=== PATIENT | female | born 1980 | race Caucasian/White ===

== ENCOUNTER 2016-12-25 02:35 | Emergency (ER) | payer BC, OTHER ==
[~2016-12-25] VITALS: Ht 162.6 cm; Wt 52.7 kg
[2016-12-25 02:40] VITALS: Ht 162.6 cm; Wt 52.7 kg
[2016-12-25] MEDS ORDERED: SOD CHLORIDE 0.9% 1,000 ML IV STA (05:08)
[2016-12-25] MEDS ORDERED: ONDANSETRON 4 MG INJ IV STA (05:08)
[2016-12-25] MEDS ORDERED: morphine 4 MG/ML VIAL IV STA (05:08)
[2016-12-25 05:47] LABS: ADD SCAN DIFF NO
[2016-12-25] MEDS ORDERED: HYDR-842 PO (05:50)
[2016-12-25] MEDS ORDERED: VITA1CAP PO (05:52)
[2016-12-25 06:14] LABS: ALBUMIN 4.5 g/dl (3.3-4.9); ALBUMIN/GLOBULIN RATIO 1.4; BILIRUBIN,INDIRECT 0.3 mg/dl (0-1.1); BILIRUBIN,TOTAL 0.3 mg/dl (0.2-1.3); CALCIUM 9.4 mg/dl (8.4-10.2); CREATININE 0.69 mg/dl (0.44-1.00); POTASSIUM 4.3 mmol/L (3.5-5.1); TOTAL PROTEIN 7.7 g/dl (6.1-8.1)
[2016-12-25 06:19] LABS: BASOPHIL # 0.1 10^3/ul (0.0-0.1); BASOPHILS % 0.9 % (0.0-2.0); EOSINOPHILS # 0.4 10^3/ul (0.0-0.5); EOSINOPHILS % 3.4 % (0.0-7.0); HEMATOCRIT 43.4 % (37.0-47.0); HEMOGLOBIN 13.4 g/dl (12.0-16.0); LYMPHOCYTES # 3.5 10^3/ul (0.8-2.9); LYMPHOCYTES % 33.5 % (15.0-51.0); MEAN CORPUSCULAR HEMOGLOBIN 26.2 pg (29.0-33.0); MEAN CORPUSCULAR HGB CONC 30.9 g/dl (32.0-37.0); MEAN CORPUSCULAR VOLUME 84.9 fl (82.0-101.0); MEAN PLATELET VOLUME 10.4 fl (7.4-10.4); MONOCYTE # 0.7 10^3/ul (0.3-0.9); MONOCYTES % 6.4 % (0.0-11.0); NEUTROPHIL # 5.8 10^3/ul (1.6-7.5); NEUTROPHILS % 55.4 % (39.0-77.0); PLATELET COUNT 309 10^3/UL (140-415); RED BLOOD COUNT 5.11 10^6/ul (4.20-5.40); WHITE BLOOD COUNT 10.4 10^3/ul (4.8-10.8)
[2016-12-25 06:29] LABS: ADD UMIC NO; URINE BILIRUBIN (Dip) NEGATIVE (NEGATIVE); URINE BLOOD (Dip) NEGATIVE (NEGATIVE); URINE COLOR LT. YELLOW (YELLOW); URINE GLUCOSE (Dip) NEGATIVE (NEGATIVE); URINE KETONES (Dip) NEGATIVE (NEGATIVE); URINE LEUKOCYTE ESTERASE (Dip) NEGATIVE (NEGATIVE); URINE NITRITE (Dip) NEGATIVE (NEGATIVE); URINE TOTAL PROTEIN (Dip) NEGATIVE (NEGATIVE); URINE UROBILINOGEN (Dip) 0.2 E.U./dL (0.1-1.0)
[2016-12-25] MEDS ORDERED: LIDOCAINE/MYLANTA 40 ML BTL PO ONE (06:30)
[2016-12-25] MEDS ORDERED: PANTOPRAZOLE (EC) 40 MG TAB PO ONE (06:30)
--- NOTE | 2016-12-25 06:41 | RADRPT ---
PROCEDURE: XR Chest. CLINICAL INDICATION: Abdominal pain TECHNIQUE: A single AP view of the chest was obtained. COMPARISON: None. FINDINGS: No focal airspace opacification, pleural effusion or pneumothorax is seen. The cardiomediastinal si lhouette is within normal limits for size. The osseous structures are unremarkable. IMPRESSION: No radiographic evidence of acute cardiopulmonary disease. RPTAT: HH .Tracey Anne MD, MD Date Time Electronically viewed and signed by .Tracey Anne MD, on 12/25/2016 06:40 .G/
[2016-12-25] MEDS ORDERED: ONDA4TAB14 PO (08:03)
[2016-12-25] MEDS ORDERED: PANT40TA3 PO (08:03)
[2016-12-25 08:15] VITALS: BP 131/85; PULSE 79; RESP 18; TEMP 97.8
--- NOTE | 2016-12-25 09:37 | ERD ---
ER Documentation Chief Complaint Date/Time DATE: 12/25/16 TIME: 09:34 Chief Complaint ABD PAIN RADIATING TO UPPER BACK X1DAY. +SOB. HPI Patient is a 36-year-old female with no medical problems who presents with abdominal pain. She says the abdominal pain started yesterday after eating. She says "I feel fullness". She has had midepigastric pain which radiates up her esophagus. She has a funny taste in her mouth. She denies fevers. She had vomiting yesterday. She has no diarrhea. She tried Atarax last night. Upon review of old medical records the patient one previous visit to the ER in 2012. ROS All systems reviewed and are negative except as per history of present illness. Medications Home Meds Active Scripts Pantoprazole* (Protonix*) 40 Mg Tablet.dr, 40 MG PO DAILY, #20 TAB Prov:SORAIDA CASTRO MD 12/25/16 Ondansetron (Ondansetron Odt) 4 Mg Tab.rapdis, 4 MG PO Q6H Y for NAUSEA AND/OR VOMITING, #30 TAB Prov:SORAIDA CASTRO MD 12/25/16 Reported Medications Vitamin B Complex (Vitamin B Complex) 1 Each Capsule, 1 EACH PO, CAP 12/25/16 Hydroxyzine Hcl* (Atarax*) 25 Mg Tab, 0 PO TID, TAB 12/25/16 Allergies Allergies: Coded Allergies: No Known Allergy (Unverified , 12/25/16) PMhx/Soc Medical and Surgical Hx: pt denies Medical Hx History of Surgery: Yes (c section) Hx Alcohol Use: No Hx Substance Use: No Hx Tobacco Use: No Smoking Status: Never smoker FmHx Family History: No diabetes Physical Exam Vitals Vital Signs Date Time Temp Pulse Resp B/P Pulse Ox O2 Delivery O2 Flow Rate FiO2 12/25/16 08:15 97.8 79 18 131/85 100 Room Air 12/25/16 02:40 97.4 72 20 116/76 99 Physical Exam Const: No acute distress Head: Atraumatic Eyes: Normal Conjunctiva ENT: Normal External Ears, Nose and Mouth. Neck: Full range of motion..~ No meningismus. Resp: Clear to auscultation bilaterally Cardio: Regular rate and rhythm, no murmurs Abd: Soft, non tender, non distended. Normal bowel sounds Skin: No petechiae or rashes Back: No midline or flank tenderness Ext: No cyanosis, or edema Neur: Awake and alert Psych: Normal Mood and Affect Result Diagram: 12/25/16 0529 12/25/16 0529 Results 24 hrs Laboratory Tests Test 12/25/16 05:29 White Blood Count 10.410^3/ul Red Blood Count 5.1110^6/ul Hemoglobin 13.4g/dl Hematocrit 43.4% Mean Corpuscular Volume 84.9fl Mean Corpuscular Hemoglobin 26.2pg Mean Corpuscular Hemoglobin Concent 30.9g/dl Red Cell Distribution Width 19.0% Platelet Count 99226^3/UL Mean Platelet Volume 10.4fl Neutrophils % 55.4% Lymphocytes % 33.5% Monocytes % 6.4% Eosinophils % 3.4% Basophils % 0.9% Nucleated Red Blood Cells % 0.0/100WBC Neutrophils # 5.810^3/ul Lymphocytes # 3.510^3/ul Monocytes # 0.710^3/ul Eosinophils # 0.410^3/ul Basophils # 0.110^3/ul Nucleated Red Blood Cells # 0.010^3/ul Urine Color LT. YELLOW Urine Clarity CLEAR Urine pH 6.0 Urine Specific Dalton 1.015 Urine Ketones NEGATIVE Urine Nitrite NEGATIVE Urine Bilirubin NEGATIVE Urine Urobilinogen 0.2 E.U./dL Urine Leukocyte Esterase NEGATIVE Urine Hemoglobin NEGATIVE Urine Glucose NEGATIVE% Urine Total Protein NEGATIVE Sodium Level 140mmol/L Potassium Level 4.3mmol/L Chloride Level 105mmol/L Carbon Dioxide Level 27mmol/L Anion Gap 12 Blood Urea Nitrogen 9mg/dl Creatinine 0.69mg/dl Glucose Level 82mg/dl Calcium Level 9.4mg/dl Total Bilirubin 0.3mg/dl Direct Bilirubin 0.00mg/dl Indirect Bilirubin 0.3mg/dl Aspartate Amino Transf (AST/SGOT) 24IU/L Alanine Aminotransferase (ALT/SGPT) 29IU/L Alkaline Phosphatase 67IU/L Total Protein 7.7g/dl Albumin 4.5g/dl Globulin 3.20g/dl Albumin/Globulin Ratio 1.40 Lipase 129U/L Serum HCG, Qualitative NEGATIVE Current Medications Medications (Trade) Dose Ordered Sig/Mago Route PRN Reason Start Time Stop Time Status Last Admin Dose Admin Sodium Chloride (NS) 1,000 ml @ 1,000 mls/hr Q1H STAT IV 12/25/16 05:08 12/25/16 06:07 DC 12/25/16 05:31 Morphine Sulfate (morphine) 4 mg ONCE STAT IV 12/25/16 05:08 12/25/16 05:10 DC 12/25/16 05:31 Ondansetron HCl (Zofran Inj) 4 mg ONCE STAT IV 12/25/16 05:08 12/25/16 05:10 DC 12/25/16 05:31 Miscellaneous Medication (Gi Cocktail (2)) 40 ml ONCE ONCE PO 12/25/16 06:30 12/25/16 06:31 DC 12/25/16 07:09 Pantoprazole (Protonix Tab) 40 mg ONCE ONCE PO 12/25/16 06:30 12/25/16 06:31 DC 12/25/16 07:09 Procedures/MDM Chest x-ray negative per radiology. Patient is a 36-year-old female with no medical problems who presents with abdominal pain. I believe her symptoms are consistent with a gastritis versus reflux. I do not believe the patient has a significant gastric ulcer, pancreatitis, appendicitis, or cholecystitis. I doubt acute coronary syndrome. The patient will need to follow-up with her primary doctor within 24-48 hours. The patient can return sooner for any worsening symptoms. I will treat the patient with Protonix and Zofran. The patient can return for any worsening symptoms. Departure Diagnosis: Primary Impression: Abdominal pain Abdominal location: epigastric Qualified Code: R10.13 - Epigastric pain Condition: Fair Patient Instructions: Abdominal Pain Referrals: FREDDY HART (PCP) Additional Instructions: Call your primary care doctor TOMORROW for an appointment during the next 1-2 days.See the doctor sooner or return here if your condition worsens before your appointment time. SORAIDA CASTRO MD December 25, 2016 09:37
== END 2016-12-25 08:17 | disposition home or self-care (01) ==
LOC: E/R 02:35
DX: R10.13 Epigastric pain (principal); R11.10 Vomiting, unspecified
CPT/HCPCS: 36415; 71010; 80053; 81003; 83690; 84703; 85025; 96374; 96375; 99284; J2270; J2405; J7030; Z7610